=== PATIENT | female | born 2005 | race Caucasian/White ===

== ENCOUNTER 2024-11-14 15:20 | Emergency (ER) | payer BC ==
[2024-11-14] MEDS ORDERED: Fluorescein Opthalmic Strip ONE (16:07)
[2024-11-14] MEDS ORDERED: Proparacaine 0.5% Opth 15 ML BOT ONE (16:08)
== END 2024-11-14 16:32 | disposition home or self-care (01) ==
LOC: ERS 15:20
DX: H57.89 Other specified disorders of eye and adnexa (principal)